=== PATIENT | male | born 1965 | race Caucasian/White ===

== ENCOUNTER 2017-07-12 14:15 | Emergency (ER) | payer SELFPAY ==
[2017-07-12 14:23] VITALS: BP 139/93; PULSE 77; TEMP 98.5; BMI 27.4
[2017-07-12] MEDS ORDERED: IBUPROFEN 600 MG TABLET (FP) PO ONE ×2 (14:36→14:42)
--- NOTE | 2017-07-12 14:36 | PDOC ---
History of Present Illness - General History Source: Patient Exam Limitations: No Limitations <lCaudia Deutsch - Last Filed: 07/12/17 14:32> - General History Source: Patient Exam Limitations: No Limitations - History of Present Illness Initial Comments: 07/12/17 14:42 The patient is a 52 year old male with no reported past medical history presents to the emergency department with left eye irritation. The patient reports "he feels like something's in his eye since this morning". 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 The patient reports tried to see an process control board operator but they were closed so he presented to the ED. The patient reports having an lasik surgery. The patient is unsure about his last tetanus shot. Denies any history of cold sores. A slit lamp examination was performed on the patient. PCP: Dr. Raimundo Ahuja Allergies: Penicillin <Melissa Orlando - Last Filed: 07/12/17 15:04> - General Chief Complaint: Eye Problem Stated Complaint: LEFT EYE IRRITATION, FB SENSATION Time Seen by Provider: 07/12/17 14:19 Past History - Past Medical History COPD: No Other medical history: DENIES - Suicide/Smoking/Psychosocial Hx Smoking History: Never smoked Have you smoked in the past 12 months: No Hx Alcohol Use: No (social) <Claudia Deutsch - Last Filed: 07/12/17 14:32> <Melissa Orlando - Last Filed: 07/12/17 15:04> - Past Medical History Allergies/Adverse Reactions: Allergies Allergy/AdvReac Type Severity Reaction Status Date / Time Penicillins Allergy Verified 07/12/17 14:17 Home Medications: Ambulatory Orders Polymyxin B Sulf/Trimethoprim [Polymyxin B-Tmp Eye Drops] 10 ml OP Q3H5XD #1 bottle 07/12/17 Review of Systems - Review of Systems Able to Perform ROS?: Yes Comments:: 07/12/17 14:43 GENERAL/CONSTITUTIONAL: No fever or chills. No weakness. HEAD, EYES, EARS, NOSE AND THROAT: (+) Left eye redness and irritation. No change in vision. No ear pain or discharge. No sore throat. CARDIOVASCULAR: No chest pain or shortness of breath. RESPIRATORY: No cough, wheezing, or hemoptysis. GASTROINTESTINAL: No nausea, vomiting, diarrhea or constipation. GENITOURINARY: No dysuria, frequency, or change in urination. MUSCULOSKELETAL: No joint or muscle swelling or pain. No neck or back pain. SKIN: No rash NEUROLOGIC: No headache, vertigo, loss of consciousness, or change in strength/ sensation. ENDOCRINE: No increased thirst. No abnormal weight change. HEMATOLOGIC/LYMPHATIC: No anemia, easy bleeding, or history of blood clots. ALLERGIC/IMMUNOLOGIC: No hives or skin allergy. <Melissa Orlando - Last Filed: 07/12/17 15:04> *Physical Exam - Vital Signs Last Vital Signs Temp Pulse Resp BP Pulse Ox 98.5 F 77 18 139/93 96 07/12/17 14:15 07/12/17 14:15 07/12/17 14:15 07/12/17 14:15 07/12/17 14:15 <Claudia Deutsch - Last Filed: 07/12/17 14:32> - Vital Signs Last Vital Signs Temp Pulse Resp BP Pulse Ox 98.5 F 77 18 139/93 96 07/12/17 14:15 07/12/17 14:15 07/12/17 14:15 07/12/17 14:15 07/12/17 14:15 - Physical Exam Comments: 07/12/17 14:50 GENERAL: Awake, alert, and fully oriented, in no acute distress HEAD: No signs of trauma EYES: Left eye multiple small scattered small abrasions across the corneal, minumual conjunctival injection. Left lid everted w/ no foreign bodies. Positive fluorescein uptake over the cornea. PERRLA, EOMI, sclera anicteric. ENT: Auricles normal inspection, nares patent. Moist mucosa NECK: Normal ROM, supple, no JVD, or masses LUNGS: Breath sounds equal, clear to auscultation bilaterally. No wheezes, and no crackles HEART: Regular rate and rhythm, normal S1 and S2, no murmurs, rubs or gallops ABDOMEN: Soft, nontender, normoactive bowel sounds. No guarding, no rebound. No masses EXTREMITIES: Normal range of motion, no edema. No clubbing or cyanosis. No cords, erythema, or tenderness NEUROLOGICAL: Alert and oriented x 3. Moves all extremities. Face is symmetric. SKIN: Warm, Dry, normal turgor, no rashes or lesions noted. <Melissa Orlando - Last Filed: 07/12/17 15:04> Medical Decision Making - Medical Decision Making 07/12/17 14:32 52 yo M with left eye irritation, positive flourescin uptake c/w corneal abrasion. plan motrin, tetanus and polymixin drops left eye. <Claudia Deutsch - Last Filed: 07/12/17 14:32> *DC/Admit/Observation/Transfer - Discharge Dispostion Decision to Admit order: No <Claudia Deutsch - Last Filed: 07/12/17 14:32> - Attestations Scribe Attestion: 07/12/17 15:03 Documentation prepared by Melissa Orlando, acting as emergency medical services coordinator for Claudia Deutsch MD. <Melissa Orlando - Last Filed: 07/12/17 15:04> Diagnosis at time of Disposition: Corneal abrasion, left - Discharge Dispostion Disposition: HOME Condition at time of disposition: Improved - Prescriptions Prescriptions: Polymyxin B Sulf/Trimethoprim [Polymyxin B-Tmp Eye Drops] 10 ml OP Q3H5XD #1 bottle - Referrals Referrals: Raimundo Ahuja [Primary Care Provider] - - Patient Instructions Printed Discharge Instructions: Corneal Abrasion Additional Instructions: use antiobiotics drops 2 drops every 3 hrs left eye while awake x 10 days. follow up with your opthomologist. take motrin 400 mg every 8 hrs as needed for pain. you were given a tetanus today. - Post Discharge Activity
[2017-07-12] MEDS ORDERED: DIPHTH,PERTUSS(ACELL),TET 0.5 ML DISP.SYRIN IM ONE (14:48)
== END 2017-07-12 14:55 | disposition home or self-care (01) ==
LOC: FER 14:15
PROC: 3E0234Z Introduction of Serum, Toxoid and Vaccine into Muscle, Percutaneous Approach (ICD-10-PCS; principal; 2017-07-12)
DX: S05.02XA Injury of conjunctiva and corneal abrasion without foreign body, left eye, initial encounter (principal); X58.XXXA Exposure to other specified factors, initial encounter; Y93.9 Activity, unspecified; Y92.9 Unspecified place or not applicable
CPT/HCPCS: 90715; 99282-25

== ENCOUNTER 2022-06-22 12:30 | Emergency (ER) | payer OTHER ==
[2022-06-22 13:08] VITALS: BP 142/95; PULSE 87; RESP 18; TEMP 98.4; BMI 29.8
[2022-06-22] MEDS ORDERED: KETOROLAC TROMETHAMINE 15 MG/ML VIAL IVPUSH ONE (13:30)
[2022-06-22] MEDS ORDERED: SODIUM CHLORIDE 1,000 ML IV STA (13:30)
[2022-06-22] MEDS ORDERED: METOCLOPRAMIDE HCL INJECTION 10 MG/2 ML VIAL IVPB ONE (13:30)
[2022-06-22] MEDS ORDERED: FAMOTIDINE 20 MG/50 ML IVPB 20 MG/50 ML MG IVPB ONE ×2 (13:30→14:07)
[2022-06-22] MEDS ORDERED: MAG HYDROX/AL HYDROX/SIMETH 30 ML UNIT-DOSE CUP PO ONE (13:30)
[2022-06-22] MEDS ORDERED: FLUORESCEIN NA 1 EA STRIP OS ONE (13:35)
[2022-06-22] MEDS ORDERED: TETRACAINE 0.5% HCL 0.6ML DROPPER.BOTTLE OS ONE (13:36)
[2022-06-22] MEDS ORDERED: FLUORESCEIN NA 1 EA STRIP ONE (13:39)
[2022-06-22] MEDS ORDERED: TETRACAINE 0.5% OPHTH SOLN 2 ML BOTTLE ONE (13:39)
[2022-06-22] MEDS ORDERED: METOCLOPRAMIDE HCL INJECTION 10 MG/2 ML VIAL ONE (13:40)
[2022-06-22] MEDS ORDERED: KETOROLAC TROMETHAMINE 15 MG/ML VIAL ONE (13:40)
[2022-06-22] MEDS ORDERED: ACETAMINOPHEN INJECTION 100 ML IVPB ONE (13:40)
[2022-06-22] MEDS ORDERED: MAG HYDROX/AL HYDROX/SIMETH 30 ML UNIT-DOSE CUP ONE (14:07)
[2022-06-22] MEDS ORDERED: ACETAMINOPHEN 1000 MG/100 ML BAG IVPB ONE (14:38)
== END 2022-06-22 15:30 | disposition home or self-care (01) ==
LOC: FER 12:30
PROC: 3E03329 Introduction of Other Anti-infective into Peripheral Vein, Percutaneous Approach (ICD-10-PCS; principal; 2022-06-22)
PROC: 3E033GC Introduction of Other Therapeutic Substance into Peripheral Vein, Percutaneous Approach (ICD-10-PCS; 2022-06-22)
PROC: 3E033GC Introduction of Other Therapeutic Substance into Peripheral Vein, Percutaneous Approach (ICD-10-PCS; 2022-06-22)
PROC: 3E033GC Introduction of Other Therapeutic Substance into Peripheral Vein, Percutaneous Approach (ICD-10-PCS; 2022-06-22)
PROC: 3E0337Z Introduction of Electrolytic and Water Balance Substance into Peripheral Vein, Percutaneous Approach (ICD-10-PCS; 2022-06-22)
DX: R10.13 Epigastric pain (principal); R51.9 Headache, unspecified; M54.2 Cervicalgia
CPT/HCPCS: 93005; 99284-25